=== PATIENT | female | born 1975 | race Caucasian/White ===

== ENCOUNTER → 2016-07-29 17:14 | Outpatient (CLI) | payer OTHER ==
[2010-07-31 09:09] VITALS: BMI 22.4
== END | disposition home or self-care (01) ==
LOC: D.MAMMO 14:00
DX: Z12.31 Encounter for screening mammogram for malignant neoplasm of breast (principal)

== ENCOUNTER 2019-03-01 05:14 | Day surgery (SDC) | payer OTHER ==
[2019-02-28 14:01] LABS: BASOPHILS 0 % (0-2); EOSINOPHILS 0.6 % (0-7); HEMATOCRIT 38.9 % (36.0-48.0); HEMOGLOBIN 12.9 g/dL (12-16); LYMPHOCYTES 35.5 % (15-50); MCH 29.9 pg (26.0-34.0); MCHC 33.2 g/dL (31.0-37.0); MCV 90.3 fL (80.0-100.0); MONOCYTES 7.4 % (2-11); NEUTROPHILS 56.5 % (40-80); PLATELET COUNT 298 10x3/uL (130-400); RBC 4.31 10x6/uL (4.00-5.40); RDW 12.2 % (11.5-14.5); WBC 4.8 10x3/uL (4.8-10.8)
[2019-02-28 14:10] LABS: CALC OSMOLALITY 283 mosm/kg (275-300); CALCIUM 8.8 mg/dL (8.5-10.1); CARBON DIOXIDE 32.1 mmol/L (21.0-32.0); CHLORIDE - SERUM 105 mmol/L (98-107); CREATININE - SERUM 0.6 mg/dL (0.6-1.3); GLUCOSE 91 mg/dL (74-106); HCG SERUM NEGATIVE (NEGATIVE); POTASSIUM - SERUM 4.2 mmol/L (3.5-5.1); SODIUM 143 mmol/L (136-145); UREA NITROGEN 10 mg/dL (7-18); eGFR NON AFRICAN AMERICAN > 90 mL/min (90-120)
[~2019-03-01] VITALS: Ht 170.2 cm; Wt 64.9 kg
[~2019-03-01 05:14] MED LIST: VYVANSE30 MG PO
[2019-03-01 06:29] VITALS: BP 103/54; Ht 170.2 cm; Wt 64.9 kg
[2019-03-01] MEDS ORDERED: HYDROCODON-ACE1 EA10 PO (08:02)
--- NOTE | 2019-03-02 08:22 | OP ---
PATIENT NAME: DALTON DE LOS SANTOS MEDICAL RECORD: [id number] LOCATION:[facility] ADMISSION DATE: SURGEON: KYLE TERAN MD DATE OF OPERATION: 03/01/2019 PREOPERATIVE DIAGNOSIS: Ventral hernia. POSTOPERATIVE DIAGNOSIS: Ventral hernia. PROCEDURE: Ventral hernia repair. SURGEON: Kyle Teran MD REPORT OF PROCEDURE: The patient's abdomen was prepped and draped in sterile fashion. A semicircular incision was made on the inferior aspect of the umbilicus. Electrocautery was used to dissect through the subcutaneous tissues. We elevated the umbilical stalk and there was a small hernia defect present. Just above the umbilicus, there was about 1 x 0.5 cm hernia defect with fatty contents. These were pushed back down and they were cleared off. The fascial edges were closed transversely using interrupted 0 Prolenes on both incisions. The top hernia defect required 3 stitches, the bottom one required 1. We then irrigated out the wound. The umbilicus was tacked down with a single interrupted 0 Vicryl. The subcutaneous tissues were reapproximated with interrupted 3-0 Vicryl and the skin was closed with running subcutaneous 5-0 Monocryl. A 10 mL of 0.25% Marcaine with epinephrine was infused in the surrounding tissues and the wound was dressed appropriately. COMPLICATIONS: None. CONDITION: Stable. ANESTHESIA: General endotracheal and local. BLOOD LOSS: Minimal. TRANSINT:[id number] Voice Confirmation ID: [id number] DOCUMENT ID: [id number] KYLE TERAN MD at 0822 CC: RACHELLE GAY MD [id number] DICTATION DATE: 03/01/19 08 YARD CLERK: 03/01/19 1043 [facility] [place] 03/01/19 [place] [id number]
== END 2019-03-01 11:05 | disposition home or self-care (01) ==
LOC: D.OPS 05:14 → D.PAN 07:15 → D.OPS 11:05
PROVIDERS: ATTEND Surgery
DX: K43.9 Ventral hernia without obstruction or gangrene (principal)